=== PATIENT | male | born 1945 | race Two or more races ===

== ENCOUNTER 2024-06-24 14:43 | Emergency (ER) | payer MEDICARE, OTHER ==
[~2024-06-24] VITALS: Ht 182.9 cm; Wt 78.0 kg
[2024-06-24 14:46] VITALS: O2SAT 98
[2024-06-24] MEDS ORDERED: ACETAMINOPHEN 325MG TABLET PO ONE (15:15)
[2024-06-24] MEDS ORDERED: TETANUS, DIPHTHERIA, PERTUSSIS VAC/PF 0.5ML (>10YR OLD) IM ONE (15:15)
[2024-06-24] MEDS ORDERED: LIDOCAINE HCL/PF 1% 10 MG/ML 5ML VIAL INFIL ONE (15:15)
[2024-06-24] MEDS ORDERED: BACITRACIN ZINC OINT UDPKT TOP ONE (15:15)
[2024-06-24] MEDS: ACETAMINOPHEN 325MG TABLET PO NR (17:33)
[2024-06-24] MEDS: TETANUS, DIPHTHERIA, PERTUSSIS VAC/PF 0.5ML (>10YR OLD) IM ONE (17:35)
[2024-06-24] MEDS: LIDOCAINE HCL/PF 1% 10 MG/ML 5ML VIAL INFIL NR (18:08)
[2024-06-24] MEDS: BACITRACIN ZINC OINT UDPKT TOP NR (18:09)
[2024-06-24 18:16] VITALS: BP 142/83; PULSE 69; RESP 16; TEMP 36.7; O2SAT 98
== END 2024-06-24 19:26 | disposition home or self-care (01) ==
LOC: ER 14:43
DX: S01.112A Laceration without foreign body of left eyelid and periocular area, initial encounter (principal); I10 Essential (primary) hypertension; W18.30XA Fall on same level, unspecified, initial encounter; Y93.89 Activity, other specified; Y92.89 Other specified places as the place of occurrence of the external cause; Y99.8 Other external cause status
CPT/HCPCS: 99285; 70450; 73130; 90715; 12011; 90471; J2003